=== PATIENT | female | born 1960 | race Caucasian/White ===

== ENCOUNTER → 2021-01-30 | Outpatient (CLI) | payer OTHER ==
--- NOTE | 2021-01-30 16:48 | RAD ---
Site ID: [id number] EXAMINATION: XR LUMBAR SPINE 2-3V. HISTORY: 60 years Female Reason: LOW BACK PAIN. . COMPARISON: None. FINDINGS: The vertebral body heights appear preserved. There is prominent lordotic curvature in the lumbar spin e with minimal posterior translation of the L1 over L2 and L2 over L3 and L3 over L4 levels. There ar e prominent anterior osteophytes in the lower thoracic and upper to mid the lumbar spine levels. No p osterior osteophytes identified. Sclerotic degenerative changes in the lower lumbar spine facet joint s are from a seen. The SI joints appear unremarkable. No prior studies available to assess chronicity . IMPRESSION: There is exaggerated lumbar spine lordosis with minimal posterior translation of L1 over L2, L2 over L3 and L3 over L4 levels. Degenerative changes. Electronically signed by: Almas Arriola MD (01/30/2021 4:46 PM) [id number]
== END ==
LOC: RAD 10:51
PROVIDERS: ATTEND Anesthesiology Pain Medicine
DX: Z02.71 Encounter for disability determination (principal); M47.816 Spondylosis without myelopathy or radiculopathy, lumbar region; M25.78 Osteophyte, vertebrae
CPT/HCPCS: 72100